=== PATIENT | male | born 1975 | race Caucasian/White ===

== ENCOUNTER 2018-12-21 12:06 | Emergency (ER) | payer SELFPAY ==
[~2018-12-21] VITALS: Ht 180.3 cm; Wt 75.7 kg
[~2018-12-21 12:06] MED LIST: HYDR1TAB PO
[2018-12-21 12:08] VITALS: BP 117/80
[2018-12-21] MEDS ORDERED: KETOROLAC TROMETHAMINE INJ 60 MG/2 ML VIAL IM ONE (12:30)
[2018-12-21] MEDS ORDERED: KETOROLAC TROMETHAMINE INJ 30 MG/ML VIAL ONE (12:39)
== END 2018-12-21 13:55 | disposition home or self-care (01) ==
LOC: ER 12:07
DX: S20.222A Contusion of left back wall of thorax, initial encounter (principal); S80.212A Abrasion, left knee, initial encounter; S80.211A Abrasion, right knee, initial encounter; F41.9 Anxiety disorder, unspecified; W17.89XA Other fall from one level to another, initial encounter; Y93.89 Activity, other specified; Y92.89 Other specified places as the place of occurrence of the external cause; Y99.8 Other external cause status
CPT/HCPCS: 72080; 96372; 99283; J1885